=== PATIENT | female | born 1985 | race Caucasian/White ===

== ENCOUNTER 2018-02-25 01:22 | Emergency (ER) | payer MEDICAID ==
[~2018-02-25] VITALS: Ht 160 cm; Wt 70.3 kg
[2018-02-25 01:35] VITALS: BP_SYST 130
--- NOTE | 2018-02-25 01:35 | NUR ---
Patient to ER bed 6 to gown for evaluation. Side rails up.
--- NOTE | 2018-02-25 01:37 | NUR ---
ER Dr. Cornejo at bedside examining patient.
[2018-02-25] MEDS ORDERED: ONDANSETRON 4 MG ODT TAB PO ONE ×2 (01:45→04:45)
[2018-02-25] MEDS ORDERED: PANTOPRAZOLE SODIUM 40 MG TAB PO ONE (01:45)
[2018-02-25] MEDS ORDERED: LIDOCAINE VISCOUS 2%, 15 ML UDC MM ONE (01:45)
[2018-02-25] MEDS ORDERED: BELLADONNA ALKALOIDS/PHENOBARB 5 ML UDC PO ONE (01:45)
[2018-02-25] MEDS ORDERED: MAG-AL HYDROX/SIMETH 30 ML UDC PO ONE (01:45)
--- NOTE | 2018-02-25 02:00 | NUR ---
Pt is ambulatory c/o abdominal pain for the last few days and has gotten worse today. Pt states she also has diarrhea and has been vomiting. No other injuries/complaints per patient or noted.
[2018-02-25 03:09] VITALS: BP_SYST 125
[2018-02-25] MEDS ORDERED: ONDANSETRON 4 MG ODT TAB ONE (03:09)
--- NOTE | 2018-02-25 03:09 | NUR ---
Patient given written and verbal discharge instructions and verbalizes understanding. ER MD discussed with patient the results and treatment provided. Patient in stable condition. ID arm band removed. Rx of Zofran, Maalox, and Protonix given. Patient educated on pain management and to follow up with PMD. Pain Scale 0. Opportunity for questions provided and answered. Medication side effect fact sheet provided.
== END 2018-02-25 03:09 | disposition home or self-care (01) ==
LOC: SED 01:22
DX: K29.70 Gastritis, unspecified, without bleeding (principal)
CPT/HCPCS: 74018; 81025; 99284; J2001; Q0162